=== PATIENT | female | born 1965 | race Caucasian/White ===

== ENCOUNTER → 2019-06-26 06:41 | Outpatient (CLI) | payer OTHER, SELFPAY ==
[2019-05-24 14:12] VITALS: BMI 26.4
== END ==
PROVIDERS: Family Provider Family Medicine; PCP Family Medicine; Referring Provider Internal Medicine Cardiovascular Disease; Visit Provider Internal Medicine Cardiovascular Disease
DX: R07.9 Chest pain, unspecified (principal); E78.1 Pure hyperglyceridemia; Z82.49 Family history of ischemic heart disease and other diseases of the circulatory system
CPT/HCPCS: 78452; 93017; A9500; A4216

== ENCOUNTER → 2019-07-02 12:42 | Outpatient (CLI) | payer OTHER, SELFPAY ==
[2019-05-24 14:12] VITALS: BMI 26.4
--- NOTE | 2019-06-26 12:48 | STRESSREP ---
Stress Test Report Pharmacologic myocardial perfusion stress test. 53-year-old lady with a history of chest pain. Stress protocol: Resting EKG demonstrates normal sinus rhythm with a rate of 75 bpm normal intervals are noted resting blood pressure is 102/70 mmHg. The patient exercised according to regular Adam protocol for a total duration of 9 minutes and 45 seconds the maximum heart rate attained was 160 bpm which was 94% of maximum predicted heart rate the maximum workload was 11.3 metabolic equivalents. The patient maintained sinus rhythm throughout the recording. At rest there were no ST or T wave changes noted suggest ischemia peak exercise upsloping ST changes noted less than 1 mm in leads II, III and aVF and approximately 1.1 mm in lead V4, V5 and V6. The above but not suggestive of ischemia. The resting blood pressure was 102/70 with a peak blood pressure 138/68. The EKG changes returned back to baseline immediately in the posterior recovery period. No clinical angina was noted the test was terminated due to attainment of target heart rate. Myocardial perfusion protocol. 11.9 mCi of technetium 99m sestamibi was injected at rest. The patient exercised according to regular Adam protocol for a total duration of 9 minutes and 45 seconds at peak exercise 33.8 mCi of technetium 99m sestamibi was injected stress images were obtained stress and rest images were reconstructed and compared in the short axis vertical long and horizontal long axis. Gated images were also obtained Perfusion SPECT analysis: Review of the stress images demonstrate normal uptake of tracer noted in all areas of the myocardium the resting images similar demonstrate normal uptake of tracer noted in all areas of the myocardium. No areas of reversibility are noted suggest ischemia no previous infarct is noted. Gated SPECT analysis: The gated ejection fraction is noted to be 55% plus. Conclusion: Normal exercise myocardial perfusion stress test at a high workload. Preserved ejection fraction.
--- NOTE | 2019-07-02 12:42 | ECHOD_ITS ---
Reason For Study: Chest Pain Procedure This was a 2D Doppler, Color Flow transthoracic echocardiogram. The exam was of adequate technical quality. Exam performed in department. Left Ventricle Normal LV size. Left ventricular systolic function is normal. The estimated ejection fraction is 65 %. Transmitral doppler flow suggestive of impaired relaxation of left ventricle. No regional wall motion abnormalities noted. Right Ventricle Normal RV size. Normal systolic function. Atria Normal left atrium. Normal right atrium. No doppler evidence for ASD. Mitral Valve There is no mitral annular calcification. Mild focal mitral valve calcification of the anterior leaflet. Trivial mitral valve insufficiency. Tricuspid Valve Normal tricuspid valve. Trivial tricuspid valve insufficiency. Aortic Valve Trisinus/trileaflet aortic valve. Normal aortic valve. Pulmonic Valve The pulmonic valve is not well visualized. Trivial pulmonic valve insufficiency. Great Vessels Normal sized aortic root. Pericardium/Pleural No pericardial effusion. MMode/2D Measurements & Calculations LVIDd: 4.0 cm IVSd: 1.1 cm Ao root diam: 3.1 cm LVIDs: 2.1 cm LVPWd: 1.1 cm LA dimension: 3.5 cm RVDd: 2.7 cm FS: 47.5 % LAV(MOD-bp): 25.0 ml LA A4 area: 10.2 cm2 RA A4 area: 9.7 cm2 LAV(MOD-bp) Indexed: 14.5 ml/m2 LAV(MOD-sp2): 28.6 ml LAV(MOD-sp4): 20.6 ml Time Measurements MV dec time: 0.25 sec Doppler Measurements & Calculations MV E max manuel: 71.7 cm/sec Lat Peak E' Manuel: 7.4 cm/sec Med Peak E' Manuel: 5.2 cm/sec MV A max manuel: 94.9 cm/sec E/E' lat: 9.7 E/E' med: 13.7 MV E/A: 0.76 MV V2 max: 121.3 cm/sec MV P1/2t max manuel: 106.9 cm/sec Ao V2 max: 126.2 cm/sec MV max P.9 mmHg MV P1/2t: 75.3 msec Ao max P.4 mmHg MV V2 mean: 65.7 cm/sec MV dec slope: 416.0 cm/sec2 MV mean P.0 mmHg MVA(P1/2t): 2.9 cm2 MV V2 VTI: 27.4 cm MR max manuel: 111.1 cm/sec PA V2 max: 93.4 cm/sec MR max P.9 mmHg Interpretation Summary Left ventricular systolic function is normal. The estimated ejection fraction is 65 %. Mild focal mitral valve calcification of the anterior leaflet. Trivial mitral valve insufficiency. Trivial tricuspid valve insufficiency. Trivial pulmonic valve insufficiency. Transmitral doppler flow suggestive of impaired relaxation of left ventricle Ordering Physician: Mg Umanzor Referring Physician: Mg Umanzor Performed By: Dorian Beaulieu RCS
== END ==
PROVIDERS: Family Provider Family Medicine; PCP Family Medicine; Referring Provider Internal Medicine Cardiovascular Disease; Visit Provider Internal Medicine Cardiovascular Disease
DX: R07.9 Chest pain, unspecified (principal)
CPT/HCPCS: 93306

== ENCOUNTER → 2022-11-16 | Outpatient (CLI) | payer OTHER, SELFPAY ==
[2022-11-16 15:17] LABS: EXAGEN MAILED SPECIMEN
[2022-11-16 17:44] LABS: Absolute Lymphocyte Count 3.35 X10^3/uL (0.83-4.51); Absolute Neutrophil Count 5.5 X10^3/uL (2.0-7.7); Basophil# 0.07 X10^3/uL; Basophil% 0.7 % (0-1); Eosinophil# 0.14 X10^3/uL; Eosinophils% 1.4 % (0-5); Hematocrit 50.1 % (37-47); Hemoglobin 16.4 g/dL (12.0-15.0); Lymphocyte # 3.35 X10^3/ul (0.83-4.51); Lymphocyte % 34.3 % (19-41); Mean Corp Hgb Conc 32.7 g/dL (32-36); Mean Corpuscular Hgb 30.8 pg (27.0-32.0); Mean Platelet Vol. 9.1 fl (6.2-12.0); Monocyte# 0.67 X10^3/uL; Monocyte% 6.9 % (0-10); NRBC Flagged by Analyzer 0 % (0-5); Neutrophil # 5.51 X10^3/uL (2.7-7.7); Neutrophil % 56.4 % (47-70); Platelet Count 283 K/mm3 (150-450); RBC Distribution Width CV 12.4 % (11.6-14.6); RBC Distribution Width SD 42.9 fl (35.1-43.9); Red Blood Count 5.33 M/mm3 (4.2-5.4); White Blood Count 9.8 K/mm3 (4.4-11.0)
[2022-11-16 17:59] LABS: Color, Urine Yellow (Yellow); Glucose, Dipstick 1000 mg/dl (Normal); Ketone-Dipstick Negative (Negative); Leukocyte Esterase-Dipstick Negative /ul (Negative); Nitrite-Dipstick Negative (Negative); Occult Blood-Urine Negative /ul (Negative); Protein-Dipstick Negative (Negative); Urine Bilirubin Dipstick Negative (Negative); Urine Clarity Clear (Clear); Urine Urobilinogen Normal (Normal)
[2022-11-16 18:08] LABS: International Normalized Ratio 0.9
[2022-11-16 18:09] LABS: Partial Thromboplast Time 28.8 Seconds (24.1-36.2)
[2022-11-16 18:17] LABS: Protein, Urine (Random) < 6.0 mg/dL (<11.9)
[2022-11-16 18:33] LABS: AST(SGOT) 22 U/L (15-37); Alanine Aminotransfer ALT/SGPT 32 U/L (13-56); Albumin, Serum 4.6 g/dL (3.2-5.0); Alkaline Phosphatase 65 U/L (45-117); Anion Gap 8 (5-15); BUN 17 mg/dL (7-18); BUN/Creat Ratio 20.9 RATIO (10-20); Calcium,Total 9.9 mg/dL (8.5-10.1); Chloride 100 mmol/L (98-107); Creatinine, Serum 0.81 mg/dL (0.55-1.02); EST Glomerular Filtration Rate 78 mL/min (>60); Est Glom Filt Rate - Afr Amer 94 mL/min (>60); Globulin 4.4 g/dL (2.2-4.2); Glucose 83 mg/dL (74-106); Potassium 3.9 mmol/L (3.5-5.1); Sodium Level 136 mmol/L (136-145)
[2022-11-16 20:20] LABS: Hepatitis B Surface Antibody Non-Reactive; Hepatitis B Surface Antigen Non-Reactive (Nonreactive); Hepatitis C Antibody Non-Reactive (Nonreactive)
[2022-11-19 18:07] LABS: Dilute Prothrombin Time (dPT) 29.7 sec (0.0-47.6); Dilute Russell Viper Venom 29.4 sec (0.0-47.0); Hexagonal Phase Phospholipid 8 sec (0-11); Interpretation Comment: (.); PTT-LA 32.9 sec (0.0-43.5); Thrombin Time 17.6 sec (0.0-23.0); Thrombin Time 17.7 sec (0.0-23.0); dPT Confirm Ratio 1.03 Ratio (0.00-1.34)
== END | disposition home or self-care (01) ==
LOC: MTLAB 14:14
PROVIDERS: PCP Family Medicine; Referring Provider Internal Medicine Rheumatology; Visit Provider Internal Medicine Rheumatology
DX: M06.4 Inflammatory polyarthropathy (principal); E11.9 Type 2 diabetes mellitus without complications; R76.8 Other specified abnormal immunological findings in serum; M79.7 Fibromyalgia; M48.061 Spinal stenosis, lumbar region without neurogenic claudication; J45.909 Unspecified asthma, uncomplicated; K21.9 Gastro-esophageal reflux disease without esophagitis; E78.5 Hyperlipidemia, unspecified; F41.9 Anxiety disorder, unspecified; F32.A Depression, unspecified
CPT/HCPCS: 36415; 80053; 81002; 82570; 84156; 85025; 85598; 85610; 85670; 85730; 86706; 86803; 87340

== ENCOUNTER 2025-06-07 11:12 | Day surgery (SDC) | payer OTHER, SELFPAY ==
--- NOTE | 2025-05-27 07:33 | EKG12_ITS ---
Test Reason : PREOP Blood Pressure : */* mmHG Vent. Rate : 71 BPM Atrial Rate : 71 BPM P-R Int : 142 ms QRS Dur : 84 ms QT Int : 390 ms P-R-T Axes : 32 15 44 degrees QTcB Int : 423 ms Normal sinus rhythm Normal ECG Confirmed by CASTILLO SARAH, ARIEL ([id number]), online editor JACE ZHAO ([id number]) on 05/28/2025 10:21:56 AM Referred By: Kamran Herrera Confirmed By: ARIEL CHONG MD
[2025-05-27 08:22] LABS: Hematocrit 45.1 % (37-47); Hemoglobin 15.0 g/dL (12.0-15.0); Immature Granulocytes Count 0.040 X10^3/uL (0.0-0.0); Mean Corp Hgb Conc 33.3 g/dL (32-36); Mean Corpuscular Volume 92.0 fL (81-99); Mean Platelet Vol. 9.2 fl (6.2-12.0); NRBC Flagged by Analyzer 0 % (0-5); Platelet Count 254 K/mm3 (150-450); RBC Distribution Width CV 12.4 % (11.6-14.6); RBC Distribution Width SD 41.2 fl (35.1-43.9); Red Blood Count 4.90 M/mm3 (4.2-5.4); White Blood Count 9.2 K/mm3 (4.4-11.0)
[2025-06-07] VITALS (9 sets, daily range): BP systolic 106–132; BP diastolic 58–82; PULSE 68–79; RESP 16; TEMP 36.1–37; O2SAT 92–100; BMI 27.5
--- NOTE | 2025-06-07 11:35 | PCM.PRE.AN2 ---
ASA Classification* ASA Classification ASA Classification: 2 Assessment & Plan Anesthesia* Anesthesia Assessment Anesthesia Assessment: Discussed sedation and/or anesthesia options, risks, benefits, and alternatives with patient/parents/legal guardian/POA. Questions invited. The patient/parents/legal guardian/POA seems to understand and agrees to proceed with anesthesia plan. Reviewed the physical assessment, medical history, allergy history and patient home medications list prior to surgery/procedure/anesthetic and documented any changes. Performed airway and anesthesia risk assessments. Anesthesia Type Anesthesia Type: General and Block Anesthesia Focused Assessment* Airway Assessment Mouth opens: >3 cm Mallampati Score: II Labs Anesthesia Preop lab: CBC WBC, (4.4-11.0) 9.2 K/mm3 05/27/25, 07:46 RBC, (4.2-5.4) 4.90 M/mm3 05/27/25, 07:46 Hgb, (12.0-15.0) 15.0 g/dL 05/27/25, 07:46 Hct, (37-47) 45.1 % 05/27/25, 07:46 Plt Count, (150-450) 254 K/mm3 05/27/25, 07:46 CHEMISTRY Potassium, (3.5-5.1) 3.9 mmol/L 11/16/22, 14:17 Sodium, (136-145) 136 mmol/L 11/16/22, 14:17 BUN, (7-18) 17 mg/dL 11/16/22, 14:17 Creatinine, (0.55-1.02) 0.81 mg/dL 11/16/22, 14:17 Glucose, (74-106) 83 mg/dL 11/16/22, 14:17 COAG PT, (11.7-14.9) 12.0 SECONDS 11/16/22, 14:17 Pre-Assessment Diagnosis/Proposed Procedure Planned Operative Procedure(s): RIGHT FOOT TENDON ACHILLES LENGTHENING AND DEBRIDEMENT APPLICATION OF AO SPLINT Anesthesia History 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 When Was Last Pacemaker Check QUESTION #4 FULL TEXT: You/Your Family Experience fever (hyperthermia) with Anesthesia Last Oral Intake Last Oral intake: Last Oral Intake NPO since Meds taken in AM with sips of water? Meds patient instructed to take am of surgery PONV PONV - moving picture operator: PONV - moving picture operator Female Yes 06/03/25 08:32 HX of Motion Sickness No 06/03/25 08:32 HX of N/V After Surgery No 06/03/25 08:32 Non-Smoker Yes 06/03/25 08:32 Duration of Surgery greater Yes 06/03/25 08:32 than 60 minutes Number of Risk Factors 3 06/03/25 08:32 PONV Score Moderate Risk 06/03/25 08:32 Height & Weight Height & Weight: Anesthesia: Height & Weight Height 5 ft 3 in 06/13/20 15:25 Weight: 70.307 kg 06/06/25 09:41 Respiratory Assessment Respiratory Assessment - moving picture operator: Respiratory Tract Infection Hx - moving picture operator Hx Respiratory Tract Infection No 06/03/25 08:32 STOP Sleep Apnea STOP Sleep Apnea - moving picture operator: STOP Sleep Apnea - moving picture operator Hx Hypertension Yes: CONTROLLED WITH MED 06/03/25 08:32 Hx Sleep Apnea No 06/03/25 08:32 CPAP BIPAP Do you snore loudly (louder Yes 06/03/25 08:32 than talking or can be heard Do you often feel tired/ No 06/03/25 08:32 fatigued/ sleepy during daytime? Has anyone observed you stop No 06/03/25 08:32 breathing during sleep? STOP Results Positive 06/03/25 08:32 QUESTION #5 FULL TEXT : Do you snore loudly (louder than talking or can be heard through closed doors)? 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 Specify any problems Hx of Preganancy in last 3 No 06/03/25 08:32 Months Nurse Filling Out Transfusion DSCHRIBER 06/03/25 08:32 & Questions: Date: 06/03/25 06/03/25 08:32 Time: 08:32 06/03/25 08:32 Patient unable to answer at this time (ie. confused, unrespo /Reproduction History /Reproductive History - moving picture operator: /Reproductive Hx- moving picture operator Hx Now No 06/03/25 08:32 Gestational Age (in weeks): EDC: Hx Hx Para Hx Section SAB No 06/03/25 08:32 Does the father of the baby or his family experience fever w Father of the baby Malignant Hypertension history comment Active Medications Active Medications: Current Medications Generic Name Dose Route Start Last Admin Trade Name Freq PRN Reason Stop Dose Admin Cefazolin Sodium 2 gm/ Sodium 110 mls @ 200 mls/hr 06/07/25 13:00 Chloride IV 06/07/25 13:32 INTRAOP ONE PFSH Medical History Wears glasses Anxiety Insulin dependent diabetes mellitus Arthritis High cholesterol Dietary restriction History of hiatal hernia Gastric reflux Non-smoker Asthma History of echocardiogram History of stress test History of pain when walking Cardiology follow-up encounter Neuropathy Home Medications ?Medication ?Instructions ?Recorded ?Last Taken ?Type albuterol sulfate 90 mcg/actuation 2 puff inhalation Q6H PRN 05/22/19 Unknown History aerosol inhaler (Ventolin HFA) shortness of breath or wheezing aspirin 81 mg tablet,delayed 81 mg PO DAILY 05/22/19 05/30/25 History release (Adult Low Dose Aspirin) insulin glargine 100 unit/mL 40 unit subcut QHS 05/22/19 Unknown History subcutaneous solution (Lantus U-100 Insulin) metformin 1,000 mg tablet 1,000 mg PO BID 05/22/19 Unknown History ascorbate calcium (vitamin C) 500 1 g PO DAILY 05/24/19 Unknown History mg capsule dapagliflozin propanediol 5 mg 10 mg PO DAILY 05/24/19 06/02/25 History tablet (Farxiga) dulaglutide 1.5 mg/0.5 mL 0.75 mg subcut MAI 05/24/19 05/26/25 History subcutaneous pen injector (Trulicity) insulin aspart U-100 100 unit/mL 8 unit subcut BID 05/24/19 Unknown History (3 mL) subcutaneous pen (Novolog FlexPen U-100 Insulin aspart) lansoprazole 15 mg capsule,delayed 15 mg PO DAILY 05/24/19 Unknown History release lisinopril 2.5 mg tablet 2.5 mg PO DAILY 05/24/19 Unknown History turmeric root extract 500 mg 1,000 mg PO DAILY 05/24/19 Unknown History capsule atorvastatin 10 mg tablet 10 mg PO QHS 06/13/20 Unknown History cyanocobalamin (vitamin B-12) 5,000 mcg PO DAILY 06/13/20 Unknown History 5,000 mcg capsule krill 300 mg-omega-3 90 mg-dha 27 1 cap PO DAILY 06/13/20 Unknown History mg-epa 45 [id number] capsule (Maximum Red Krill [place]-3) Allergy/AdvReac Type Severity Reaction Status Date / Time meperidine (From Demerol) AdvReac Severe Vomiting Verified 06/03/25 08:27 Family History Father History of coronary artery bypass surgery Myocardial infarction, Onset Age: 67 Uncle Sudden cardiac , Onset Age: 63 Aunt Sudden cardiac , Onset Age: 63 Aunt CAD (coronary artery disease) Surgical History History of esophagogastroduodenoscopy (EGD) Hx of colonoscopy Hx of breast biopsy History of umbilical hernia repair History of carpal tunnel surgery H/O section History of total hysterectomy Social History Smoking Status: Never smoker alcohol intake: current details: occasional substance use type: does not use caffeine: Yes Type: carbonated beverages Number of servings: 1 Review of Systems (Anesthesia) ROS Narrative System reviewed and no additional complaints, except as documented.
[2025-06-07] MEDS: Lactated Ringers 1,000 ML 15 ML IV (12:03)
--- NOTE | 2025-06-07 12:47 | PCM.DC ---
Discharge Instructions DC O2, CPAP, BIPAP needs Home O2 Discharge instructions: No Dressing / Incision Discharge Activity: May Not Drive, May Shower (Please utilize cast bag when showering to keep dressings clean, dry, and intact to the right lower extremity) and Use Crutches (Please utilize crutches or knee scooter to remain nonweightbearing to the right lower extremity) Weight Bearing Status: No weight bearing (Please remain nonweightbearing to the right lower extremity with the assistance of crutches or knee scooter) Keep extremity elevated above heart level: Right Leg (Elevate right lower extremity at all times of rest for postoperative edema control) Additional Activity Instructions:: May apply ice behind the right knee for postoperative pain control. This may be performed 2-3 times a day for 15 to 20 minutes per session Dressing / Incision Call your doctor if you observe: Fever of 101 or Higher, Shortness of breath, Chest pain, Calf discomfort and Uncontrolled pain Change Dressing in: do not change dressing Remove Dressing in: leave in place till F/U (Do not change dressing. Positional change dressing at first postoperative appointment) Cleanse incision/area with: Do not get Incision Wet and Keep Dressing Clean & Dry (Do not get wet. Keep dressings clean, dry, and intact to the right lower extremity and utilize cast bag when showering to maintain compliance) Follow Up Care Please Follow Up With: Kamran Herrera DPM When: Patient is for scheduled postoperative appointment in office next week Test Results: Test results from this visit will be discussed in further detail at your follow-up appointment, if applicable. Discharge Plan Admission Attending Provider: Kamran Herrera Primary Care Provider: Oscar Khan Instructions Print Language: Upper Sorbian Discharge Orders/Prescriptions Prescriptions: New doxycycline hyclate 100 mg capsule 100 mg PO DAILY Qty: 10 0RF aspirin 325 mg tablet 325 mg PO DAILY Qty: 20 0RF oxycodone-acetaminophen 5-325 mg tablet 1 tab PO Q6H PRN (Reason: pain) 7 Days Qty: 28 0RF No Action insulin aspart U-100 [Novolog FlexPen U-100 Insulin] 100 unit/mL (3 mL) insulin pen 8 unit SC BID Rx Instructions: 3 unit SC sliding scale; lisinopril 2.5 mg tablet 2.5 mg PO DAILY dapagliflozin propanediol [Farxiga] 5 mg tablet 10 mg PO DAILY lansoprazole 15 mg capsule,delayed release(DR/EC) 15 mg PO DAILY turmeric root extract 500 mg capsule 1,000 mg PO DAILY ascorbate calcium (vitamin C) 500 mg capsule 1 g PO DAILY aspirin [Adult Low Dose Aspirin] 81 mg tablet,delayed release (DR/EC) 81 mg PO DAILY insulin glargine [Lantus U-100 Insulin] 100 unit/mL solution 40 unit SC QHS albuterol sulfate [Ventolin HFA] 90 mcg/actuation HFA aerosol inhaler 2 puff INHALATION Q6H PRN (Reason: shortness of breath or wheezing) metformin 1,000 mg tablet 1,000 mg PO BID Trulicity 1.5 mg/0.5 mL pen injector 0.75 mg SC MAI atorvastatin 10 mg tablet 10 mg PO QHS cyanocobalamin (vitamin B-12) 5,000 mcg capsule 5,000 mcg PO DAILY Maximum Red Krill [place]-3 [id number] mg capsule 1 cap PO DAILY Referrals / Follow Up: Oscar Khan MD [Primary Care Provider, Medical] Disposition Disposition (needs filled in before D/C Order can be placed): Home, Self Care
--- NOTE | 2025-06-07 12:59 | OP.PCM_ITS ---
Operative Report (Standard) Operative Information Date of Procedure: 06/07/25 Pre-Operative Diagnosis: 1. Chronic Achilles Tenonitis Right foot 2. Pain Right foot Post-Operative Diagnosis: 1. Chronic Achilles Tenonitis Right foot 2. Pain Right foot Surgery/Procedure Performed: 1. TendoAchilles Lengthening Right foot 2. Debridement of Achilles Tendon Right foot 3. Resection of Spurring/Robert type deformity Right foot 4. Application of AO splint Right foot workplace relations adviser: Yes Quality Coordinator: Ed Cifuentes DPM PGY-1 Tasks completed by learning support assistant: Closing, Dissecting tissue, Removing tissue, Implanting device, Altering tissue and Retracting Type of Anesthesia: General/Regional (Popliteal block right lower extremity) RN Documented Start/Stop Times: Operation Date: 06/07/25 13:00 Case Time Into Pre-Op 06/07/25 11:30 Anesthesia Start 06/07/25 13:28 Into Room 06/07/25 13:28 Procedure Start 06/07/25 13:57 Procedure End 06/07/25 15:45 Into Recovery 06/07/25 15:57 Procedure Start Time: 13:57 Procedure Stop Time: 15:45 Select all DRAINS/GRAFTS/IMPLANTS that apply: Implanted device (Arthrex speed bridge system with 4.75 swivel lock anchors) Implanted device details: Arthrex speed bridge Achilles system Estimated Blood Loss: < 3 mL Specimen collected: No Description of surgery: HPI/indication: Patient is a 59-year-old female who presented to office in December 2023 for Achilles tendinitis of the right lower extremity. At that time she had undergone conservative treatment of PowerStep orthotic inserts, change of shoe gear, icing to the back of the heel, anti-inflammatories, and 2 rounds of physical therapy in addition to topical pain cream and home stretching program. 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 Foll owing settling of inflammation and somewhat improvement of symptoms there still remained low-grade chronic pain which would come and go with thickening of the tendon distally. With increased thickening continued pain in shoe gear was experienced with difficulty completing tasks at work and thus surgical intervention was discussed for removal of the posterior spur at the distal portion of the Achilles including debriding the Achilles tendon of all diseased thickened portions followed by performing a tendo Achilles lengthening to discourage recurrence as despite stretching she can still not improved beyond the 5 degrees of dorsiflexion with the knee extended. Patient was agreeing to surgical intervention and did request intervention due to failure to respond. The condition was reviewed with the patient in addition to treatment options for the surgical intervention. Procedure was discussed in great detail. Rationale was discussed in detail including possible benefits versus risks and complications in detail. Advised patient the risks include but are not limited to the following: Pain, continued pain, complex regional pain syndrome, deformity, continue deformity, recurrence, overcorrection, under correction, numbness/neuritis, swelling, scarring, poor cosmetic result, bleeding, hardware failure, symptomatic hardware, need for further surgery/procedure, postoperative arthritis, fracture, weakness, shoe gear problems, inability to wear shoe gear, inability to walk, heart attack, stroke, addiction to pain medication, loss of function, loss of limb, loss of life. Patient was understanding of these and was able to repeat these back. Typical postoperative course was reviewed with the patient and she expressed understanding and agreement to proceed forward with the intervention. Consent forms were reviewed with patient and she did sign them at her own free well. No guarantees were given. No promises were made. All diagnostic data was obtained and reviewed prior to entering OR. Surgical limb was signed prior to entering OR. Procedure: Prior to entering OR while in PACU patient did receive popliteal block by anesthesia team for the right lower extremity. She was then brought to the OR under mild sedation. General anesthetic was administered and airway was secured and the patient was transferred to the table in the prone position with all prominences well-padded. A well-padded pneumatic thigh tourniquet was then placed about the patient's right lower thigh. Patient was secured to table with safety belt. The right lower extremity was then scrubbed, prepped, and draped in the usual aseptic manner. An Esmarch bandage was utilized to exsanguinate the right lower extremity and the pneumatic thigh tourniquet was inflated to 300 mmHg. Attention was directed to the posterior aspect of the right lower extremity where utilizing fluoroscopy was demonstrated the significant spurring at the distal portion of the calcaneus and insertion of the Achilles tendon. A linear incision was made at the proximal portion of the Achilles tendon off-center on the medial aspect and extended distally and curved to the lateral portion at the calcaneal wall utilizing a #15 blade. Incision was deepened via sharp and blunt dissection. Care was taken to identify and retract all vital neurovascular structures and protected throughout the duration of this case. The peritenon was then identified and transected linearly and reflected medial to lateral and tagged with a 4-0 Vicryl suture for reapproximation following the case. The distal portion of the Achilles tendon just superior to the posterior aspect of the calcaneus was transected linearly in the center of the tendon and extended distally towards the back of the calcaneus and reflected medial and lateral from the calcaneal portion posteriorly for visualization and resection of all spurring and Robert deformity. Spurring along the distal portion of the of the tendon just at the insertion was debrided utilizing a rongeur in addition to a sagittal saw and smoothed utilizing hand rasp. Next, utilizing fluoroscopic guidance the posterior superior portion of the calcaneus was resected utilizing sagittal saw to remove the Robert deformity and this was then smoothed utilizing hand rasp. Next, Achilles tendon was examined at the distal portion with appreciation given to the chronic thickening and significant inflammatory changes distally along the tendon. All nonviable portion of tendon and diseased tendon were removed utilizing sharp dissection to healthy viable Achilles tendon. Once all portions of tendon were debrided and no bony prominences remained the site was irrigated copiously with normal sterile saline. Fluoroscopic imaging was obtained confirming all reduction of spurring and Robert deformity. Next, the Achilles tendon central portion was repaired utilizing 0 Vicryl. The Arthrex Achilles speed bridge system was then deployed under guidance of fluoroscopy according to manufacture guidelines and AO principle. The 4.75 cm swivel lock was inserted in the superior portion following passing of the FiberWire suture through the distal portion of the Achilles. Both proximal and distal anchors were deployed according to the manufacture guideline and noted good strength to the Achilles tendon distally with excellent attachment/anchoring of the distal portion of the Achilles. The Achilles underwent range of motion and dorsiflexion and plantarflexion with the knee extended and noted to achieve the same amount of range of motion as prior to procedure which was noted to be 5 degrees in dorsiflexion. Superior to the FiberWire suture a tendo Achilles lengthening procedure was performed and the foot was gently dorsiflexed to gain lengthening of the Achilles tendon. Following tendon lengthening it is noted to achieve 8 degrees of dorsiflexion on the table. Next, site was again irrigated with copious amounts of normal sterile saline. The peritenon was reapproximated utilizing 4-0 Vicryl. The deep tissues were then closed utilizing 4-0 Vicryl. The subcutaneous tissues were closed utilizing 4-0 Monocryl. The skin was then reapproximated with 3-0 Prolene in simple interrupted fashion. At this time the pneumatic thigh tourniquet was deflated and a prompt hyperemic response was noted to the digits of the right foot. Incision site was then dressed utilizing Betadine soaked Adaptic, 4 x 4 gauze, Kerlix, Webril cast padding, 4 inch Boy wrap, and 6 inch Boy wrap rolled onto the foot with mild compression. A well molded AO splint was then applied to the right lower extremity and anchored utilizing a 4 inch Boy wrap and 6 inch Boy wrap and modified Acosta compression fashion. The patient tolerated the anesthesia and procedure well and was transferred to PACU with vital signs stable and vascular status intact to the right lower extremity. She will continue to follow all postoperative instructions including a nonweightbearing status to the right lower extremity with the assistance of crutches or a knee scooter. Discussed with family her aftercare including ice behind the knee and elevation of the foot for postoperative edema control. She is to follow all instructions and will follow-up in office early next week. Surgical Findings: See operative note for findings Complications Complications: No Admit VTE Documentation VTE Present on Admission: No VTE Mechan Device Prophylaxis: SCD's VTE Pharm Prophylaxis ordered?: Yes
[2025-06-07] MEDS: Midazolam 2 MG/2 ML Syringe IV (13:10)
[2025-06-07] MEDS: Cefazolin 1 GM/5 ML Vial 2 GM IV (13:30)
[2025-06-07] MEDS: fentaNYL 100 MCG/2 ML Ampul IV (13:34)
[2025-06-07] MEDS: Lidocaine 1% (5 ml sdv) 5 ML Vial 1 ML IV (13:34)
--- NOTE | 2025-06-07 16:07 | PCM.POST.ANE ---
Anesthesia: Postop Eval I Current Vital Signs Temperature: 97 F Pulse Rate: 79 Blood Pressure: 110/63 Respiratory Rate: 16 Pulse Ox: 92 Assessment Airway patent: Yes Spontaneous unlabored respirations: Yes Mental status: Awake nausea: No Vomiting: No Anesthesia Complication: No Fluid Hydration Crystalloid volume administer (ml): 500 Total IV fluid infused: 500 Progress Note Anesthesia document: Postop Eval 1 completed: Yes
--- NOTE | 2025-06-07 16:10 | PCM.POSTANE2 ---
Anesthesia Postop Eval I Sum Postop Eval Completion status Anesthesia document: Postop Eval 1 completed: Yes Anesthesia Postop Eval I Summary Anesthesia Postop Eval I Summary: Anesthesia Postop Eval I: Assessment Summary Airway patent Yes 06/07/25 16:08 Spontaneous unlabored Yes 06/07/25 16:08 respirations Mental status Awake 06/07/25 16:08 nausea No 06/07/25 16:08 Vomiting No 06/07/25 16:08 Anesthesia Postop Eval I: Fluid Summary Crystalloid volume administer 500 06/07/25 16:08 (ml) Colloids volume administered ( ml) Blood Product volume administered (ml) Total IV fluid infused 500 06/07/25 16:08 Anesthesia Postop Eval I: Summary Notes Anesthesia Complication No 06/07/25 16:08 Anesthesia Complication Comment: Post-operative progress note Anesthesia: Postop Eval II Evaluation Mental status: Awake Pain Level: 1 nausea: No Vomiting: No
--- NOTE | 2025-06-07 16:14 | RAD_ITS ---
PROCEDURE: RIGHT ANKLE MIN 3 VIEWS 06/07/2025 REASON FOR EXAM: POSTOP PODIATRY SURGERY TECHNIQUE: Procedure Code: RADANK Modality: DX Procedure: ANKLE MIN 3 VIEWS Laterality: Right COMPARISON: None. FINDINGS: No acute fracture or dislocation. Preserved visualized joint spaces. Postoperative changes to the dorsal aspect of the calcaneus status post Achilles tendon lengthening. Small amount of presumed postoperative soft tissue air in the dorsal soft tissues and mild soft tissue swelling. RAD/Ankle min 3 Views IMPRESSION: No acute osseous abnormality. Postoperative changes of Achilles lengthening as noted. Reading Location: [id number]
--- NOTE | 2025-06-07 16:30 | RAD_ITS ---
PROCEDURE: FOOT 2 VIEWS 06/07/2025 REASON FOR EXAM: RIGHT FOOT ACHILLES LENGTHENING TECHNIQUE: Procedure Code: RADFO2 Modality: DX Procedure: FOOT 2 VIEWS Laterality: Right COMPARISON: None available. FINDINGS: Intraoperative fluoroscopy was performed. Multiple spot fluoroscopic views were obtained in the operating room by the referring physician and submitted for interpretation. The total fluoroscopy time 50 seconds. Total dose was 6.75 Gycm2. RAD/Foot 2 Views IMPRESSION: Intraoperative fluoroscopic views were performed. Please see clinical note for further details. Reading Location: [facility]
== END 2025-06-07 18:11 | disposition home or self-care (01) ==
LOC: SDC 11:12 → AC 11:13
PROVIDERS: PCP Family Medicine; Referring Provider Student in an Organized Health Care Education/Training Program; Visit Provider Student in an Organized Health Care Education/Training Program
PROC: (CPT 27650; principal; 2025-06-07 12:45)
DX: M76.61 Achilles tendinitis, right leg (principal); E11.40 Type 2 diabetes mellitus with diabetic neuropathy, unspecified; Z79.4 Long term (current) use of insulin; M77.31 Calcaneal spur, right foot; G89.29 Other chronic pain; I10 Essential (primary) hypertension; E78.00 Pure hypercholesterolemia, unspecified; F33.0 Major depressive disorder, recurrent, mild; Z79.82 Long term (current) use of aspirin; Z79.84 Long term (current) use of oral hypoglycemic drugs; Z79.85 Long-term (current) use of injectable non-insulin antidiabetic drugs; Z79.899 Other long term (current) drug therapy; Z77.22 Contact with and (suspected) exposure to environmental tobacco smoke (acute) (chronic)
CPT/HCPCS: 27685; 27654; 28119; 01470; 64450; 36415; 73610; 73620; 76000; 82962; 85025; 93005; J2405